=== PATIENT | female | born 1990 | race Caucasian/White ===

== ENCOUNTER 2017-03-15 12:57 | Inpatient (IN) | payer MEDICAID, OTHER ==
[~2017-03-15] VITALS: Ht 154.9 cm; Wt 66.2 kg
[2017-03-15 13:06] VITALS: Ht 154.9 cm; Wt 66.2 kg
[2017-03-15 13:07] VITALS: BP 109/66; PULSE 62; RESP 16
--- NOTE | 2017-03-15 15:45 | TRIAGE ---
OB Triage Datetime Report Generated by CPN: 03/15/2017 15:45 Datetime: 03/15/2017 15:37 Heart Rate FHR Baseline Rate: 135 Monitor Mode: External US Variability: Moderate 6-25 bpm Accelerations: 15X15 Decelerations: None Category: Category I Pain Assessment Pain Scale: 5 Pain Presence: Intermittent Pain Type: Contraction Pain Location: Abdomen Pain Goal: 3 Datetime: 03/15/2017 15:25 Vaginal Exam Dilatation (cms): 1.5 Effacement (%): 50 Station: -3 Exam By: [email or web address] Datetime: 03/15/2017 15:01 Labor Evaluation Frequency: Irreg Monitor Mode: External Duration (sec)2399: 50-60 Quality: Moderate Pattern: Normal: <= 5 Contractions in 10 Minutes Resting Tone Novice: Relaxed Heart Rate FHR Baseline Rate: 135 Monitor Mode: External US Variability: Moderate 6-25 bpm Accelerations: 15X15 Decelerations: Variable Category: Category II Pain Assessment Pain Scale: 5 Pain Presence: Intermittent Pain Type: Contraction Pain Location: Abdomen Pain Goal: 3 Datetime: 03/15/2017 14:00 Labor Evaluation Frequency: 3-9 Monitor Mode: External Duration (sec)2399: 50-100 Quality: Moderate Pattern: Normal: <= 5 Contractions in 10 Minutes Resting Tone Novice: Relaxed Heart Rate FHR Baseline Rate: 135 Monitor Mode: External US Variability: Moderate 6-25 bpm Accelerations: 15X15 Decelerations: Late; Variable Category: Category II Pain Assessment Pain Scale: 7 Pain Presence: Intermittent Pain Type: Contraction Pain Location: Abdomen Pain Goal: 3 Datetime: 03/15/2017 13:11 Vaginal Exam Dilatation (cms): 0.0 Station: -3 Exam By: [email or web address] Datetime: 03/15/2017 13:10 Maternal Assessment Level of Consciousness: Fully Conscious DTR's/Clonus: DTRs 2+; No Clonus Headache: Denies Blurred Vision: No Respiratory Effort: Unlabored; Regular Rhythm; Equal Expansion Breath Sounds, Left: Clear and Equal Breath Sounds, Right: Clear and Equal Nausea/Vomiting: Denies RUQ Epigastric Pain: Denies Facial Edema: None Fall Risk Assessment History of Falling: (0) No Secondary Diagnosis: (0) No Ambulatory Aid: (0) Bedrest/Nurse Assist IV Therapy: (0) No Gait: (0) Normal/Bedrest/Immobile Mental Status: (0) Oriented to Own Ability Fall Score: 0 Fall Risk Score Definition: No Risk: No action required Datetime: 03/15/2017 13:08 Time of Arrival: 03/15/2017 12:55 EGA: 40.1 Arrived By: Wheelchair Arrived From: Home Chief Complaint: pt. came to hospital c/o uc since 1230, q5mins apart, pain level 7/10, deny srom, deny vag. bleeding Movement: Present Contractions: Regular Patient Complaints: Contractions Time Provider Notified: 03/15/2017 14:10 Provider Notified: Initial Plan: R/O LABOR
--- NOTE | 2017-03-15 15:46 | HP ---
Date/Time of Note Date/Time of Note DATE: 03/15/17 TIME: 15:31 OB - History Hx of Present Free Text/Dictation 26 y.o. G1 with an IUP at 40w 1d c/o UC's since 1230. No bleeding or leaking. Chief Complaint: Contractions. Last Menstrual Period: May 21, 2016 Estimated Due Date: Mar 14, 2017 : 1 Para: 0 Care: Good Care Ultrasounds: Normal mid trimester US Obstetrical Complications: None Medical Complications: None Past Family/Social History * Past Medical, Surgical, Family and Obstetric Histories reviewed from chart. Blood Type: O+ Rubella: immune RPR/VDRL: Negative GBS Status: Positive HBsAG: Negative OB Admission Exam Vital Signs Vital Signs Vital Signs Date Time Temp Pulse Resp B/P Pulse Ox O2 Delivery O2 Flow Rate FiO2 03/15/17 13:07 97.7 62 16 109/66 Physical Exam HEENT: WNL Heart: Rhythm Normal Lungs: Clear Abdomen: WNL Extremities: Normal Reflexes: Normal Cervical Dilatation: other (1-2 cm) Effacement: 50% Station: -3 Heart Rate: 120's Accelerations: Accelerations Present Decelerations: Variable Decelerations Varibility: Moderate Contractions on Admission: 6-10 Minutes Apart OB Assessment/Plan Other Assessment: Prodromal labor. Postdates. Occasional variable decels. Beta strep positive. Plan: Other (Augmentation) Induction Method: per Pitocin Protocol Other plan: ABX prophylaxis RENAE DOOLEY MD Mar 15, 2017 15:46
[2017-03-15] MEDS ORDERED: IBUPROFEN 600 MG TAB PO PRN ×2 (16:00→16:30)
[2017-03-15] MEDS ORDERED: LIDOCAINE 1% (MPF) 30 ML INJ INJ PRN (16:00)
[2017-03-15] MEDS ORDERED: ACETAMINOPHEN/CODEINE #3 TAB PO PRN (16:00)
[2017-03-15] MEDS ORDERED: METHYLERGONOVINE 0.2 MG INJ IM PRN (16:00)
[2017-03-15] MEDS ORDERED: OXYTOCIN 30 UNITS/LR 500 ML IV PRN (16:00)
[2017-03-15] MEDS ORDERED: MISOPROSTOL 200 MCG TAB PR PRN (16:00)
[2017-03-15] MEDS ORDERED: CARBOPROST 250 MCG INJ IM PRN (16:00)
[2017-03-15] MEDS ORDERED: BUTORPHANOL 2 MG INJ IV PRN (16:00)
[2017-03-15] MEDS ORDERED: AMPICILLIN 2 GM/NS (PMX) 100 ML IV ONE (16:00)
[2017-03-15] MEDS ORDERED: OXYTOCIN 30 UNITS/LR 500 ML IV SCH ×6 (16:00→16:30)
[2017-03-15] MEDS: LACTATED RINGER'S 1,000 ML IV SCH (16:06)
[2017-03-15 16:16] LABS: ADD SCAN DIFF NO
--- NOTE | 2017-03-15 16:27 | RADRPT ---
PROCEDURE: US OB. CLINICAL INDICATION: Low ALEXI , pain TECHNIQUE: Transabdominal views of the pelvis are available for review. COMPARISON: No prior studies are available for comparison. FINDINGS: There is a single intrauterine gestation in a vertex position. The heart rate is noted at 154 bpm. The placenta is anterior. The ALEXI measures 10.4 cm. RPTAT: AA IMPRESSION: Normal ALEXI. .Gary Cortes MD, MD Date Time Electronically viewed and signed by .Gary Cortes MD, on 03/15/2017 16:27 .S/
[2017-03-15 16:32] LABS: BASOPHILS % 0.3 % (0.0-2.0); EOSINOPHILS % 0.1 % (0.0-7.0); HEMATOCRIT 37.6 % (37.0-47.0); LYMPHOCYTES # 1.4 10^3/ul (0.8-2.9); LYMPHOCYTES % 20.3 % (15.0-51.0); MEAN CORPUSCULAR HEMOGLOBIN 30.1 pg (29.0-33.0); MEAN CORPUSCULAR HGB CONC 34.6 g/dl (32.0-37.0); MEAN PLATELET VOLUME 11.2 fl (7.4-10.4); MONOCYTE # 0.6 10^3/ul (0.3-0.9); NEUTROPHILS % 70.9 % (39.0-77.0); PLATELET COUNT 161 10^3/UL (140-415); RED BLOOD COUNT 4.32 10^6/ul (4.20-5.40); WHITE BLOOD COUNT 7.1 10^3/ul (4.8-10.8)
[2017-03-15 16:48] LABS: INR 0.92; PARTIAL THROMBOPLASTIN TIME 26.6 Sec (25.0-35.0); PROTIME 12.4 Sec (12.2-14.2)
[2017-03-15] MEDS ORDERED: LACTATED RINGER'S 1,000 ML IV PRN (17:00)
[2017-03-15] MEDS: AMPICILLIN 1 GM/NS (PMX) 50 ML IV SCH (21:20)
[2017-03-16] MEDS: AMPICILLIN 1 GM/NS (PMX) 50 ML IV SCH ×6 (01:27→20:55)
[2017-03-16] MEDS: LACTATED RINGER'S 1,000 ML IV SCH ×4 (02:52→20:14)
[2017-03-16] MEDS ORDERED: PROCHLORPERAZINE 10 MG INJ IV PRN (10:30)
[2017-03-16] MEDS ORDERED: ONDANSETRON 4 MG INJ IV PRN (10:30)
[2017-03-16] MEDS ORDERED: KETOROLAC 30 MG INJ IV PRN (10:30)
[2017-03-16] MEDS ORDERED: HYDROmorphONE 1 MG/ML SYG IV PRN ×2 (10:30)
[2017-03-16] MEDS ORDERED: NALOXONE (0.4 MG/ML) INJ IV PRN (10:30)
[2017-03-16] MEDS ORDERED: ZOLPIDEM 5 MG TAB PO PRN (10:30)
[2017-03-16] MEDS: DIPHENHYDRAMINE 50 MG INJ IV PRN ×2 (13:31→23:41)
--- NOTE | 2017-03-16 15:12 | QN ---
Documentation Comment cervix is 50% 1.5 cm, not ruptured. she was admitted for IOL due to postdate and variable decel in Triage and UCs. she already has epidural. I offered d/c ome and return in labor, but patient declined. NST is reactive at this time. no variables. will stop Pitocin, if not regular UCs then start Cytotec, otherwise restart Pitocin. ESTELA CALDERON MD Mar 16, 2017 15:12
[2017-03-16] MEDS: MISOPROSTOL 25 MCG CAPSULE PO SCH ×2 (16:34→20:30)
[2017-03-16] MEDS: FENTAnyl 2MCG/ML-ROPIV 0.2% 100 ML BAG EPI SCH (20:15)
--- NOTE | 2017-03-17 00:16 | QN ---
Documentation Comment she is 3 cm 70% AROM: Clear will start Pitocin ESTELA CALDERON MD Mar 17, 2017 00:16
[2017-03-17] MEDS: AMPICILLIN 1 GM/NS (PMX) 50 ML IV SCH ×6 (01:11→20:00)
[2017-03-17] MEDS: FENTAnyl 2MCG/ML-ROPIV 0.2% 100 ML BAG EPI SCH ×2 (04:02→10:08)
[2017-03-17] MEDS: LACTATED RINGER'S 1,000 ML IV SCH ×2 (05:16→08:06)
[2017-03-17] MEDS ORDERED: ACETAMINOPHEN 325 MG TAB PO PRN (14:30)
[2017-03-17] MEDS ORDERED: GENTAMICIN 120 MG/NS (PMX) 100 ML IVPB ONE (14:30)
[2017-03-17 16:26] LABS: CBV Base Excess -4.3 mmol/L; CBV COHb 2.2 %; CBV Oxygen Sat 73.9 mmHG; CBV Total Hemglobin 17.3 g/dl; Cord Blood Venous AADO2 74.7 mmHg; Fraction OxyHgb Cord Venous 71.7 %; MODE ROOM AIR; MetHgb Cord Venous 0.8 %; Sample Type CBV
[2017-03-17] MEDS ORDERED: LACTATED RINGER'S 1,000 ML IV* SCH (16:28)
--- NOTE | 2017-03-17 16:28 | LDN ---
Date/Time of Note Date/Time of Note DATE: 03/17/17 TIME: 16:24 Delivery Summary 26 YO G 1 IUP 40 weeks s/p viable female infant APGARS 6 and 8. 2nd degree vaginal perineal laceration was repaired with 2-0 Vicryl. placenta delivered intact and spontaneously. Placenta Delivered: Spontaneously Meconium: none Episiotomy: No Anesthesia type: Epidural Estimated blood loss: 300 Sponge & Needle done & correct: Yes All needle counts correct: Yes Any foreign bodies felt in the: No Problems: Infant Delivery Information Sex Sex: female Apgars 1 Minute: 6 5 Minute: 8 Suctioning Nose & mouth suctioned at henny: No Delee suction performed: No Umbilical Cord Umbilical cord with: 3 Vessels Cord presentations: nuchal cord Nuchal cord present X: 1 Cord Blood was obtained: Yes Mother & Baby Disposition Disposition Mom & Baby to Maternity; Good: Yes ESTELA CALDERON MD Mar 17, 2017 16:28
[2017-03-17] MEDS ORDERED: WITCH HAZEL/GLYCERIN PAD PR PRN (16:30)
[2017-03-17] MEDS ORDERED: DIPHENHYDRAMINE 25 MG CAP PO PRN (16:30)
[2017-03-17] MEDS ORDERED: ONDANSETRON 4 MG INJ IV PRN (16:30)
[2017-03-17] MEDS ORDERED: ONDANSETRON 4 MG TAB PO PRN (16:30)
[2017-03-17] MEDS ORDERED: MAGNESIUM HYDROXIDE 30ML CUP PO PRN (16:30)
[2017-03-17] MEDS ORDERED: DIPHENHYDRAMINE 50 MG INJ IV PRN (16:30)
[2017-03-17] MEDS ORDERED: NA PHOSPHATE/BIPHOS 133 ML ENEMA PR PRN (16:30)
[2017-03-17] MEDS ORDERED: BENZOCAINE 20% 56 ML SPRAY TOP PRN (16:30)
[2017-03-17] MEDS ORDERED: DIBUCAINE 1% 30 GM OINT PR PRN (16:30)
[2017-03-17] MEDS ORDERED: LANOLIN 7 GM TUBE TOP PRN (16:30)
[2017-03-17] MEDS ORDERED: OXYTOCIN 30 UNITS/LR 500 ML IV PRN (16:30)
[2017-03-17] MEDS ORDERED: SENNA/DOCUSATE NA (8.6MG/50MG) TAB PO PRN (16:30)
[2017-03-17] MEDS ORDERED: CARBOPROST 250 MCG INJ IM PRN (16:30)
[2017-03-17] MEDS ORDERED: ACETAMINOPHEN/CODEINE #3 TAB PO PRN ×2 (16:30)
[2017-03-17] MEDS ORDERED: MISOPROSTOL 200 MCG TAB PR PRN (16:30)
[2017-03-17] MEDS: IBUPROFEN 600 MG TAB PO SCH (18:00)
[2017-03-17 18:15] VITALS: BP 144/90; PULSE 63; RESP 20
[2017-03-17 20:30] VITALS: BP 107/56; PULSE 87; RESP 18
[2017-03-17] MEDS: SENNA/DOCUSATE NA (8.6MG/50MG) TAB PO SCH (21:42)
[2017-03-18] MEDS: LACTATED RINGER'S 1,000 ML IV SCH
[2017-03-18] MEDS: IBUPROFEN 600 MG TAB PO SCH ×5 (00:14→23:30)
[2017-03-18 04:00] VITALS: BP 98/57; PULSE 59; RESP 17
--- NOTE | 2017-03-18 06:27 | DS ---
Date/Time of Note Date/Time of Note DATE: 03/18/17 TIME: 06:26 Obstetrical Discharge Record Final Diagnosis Final Diagnosis: Term delivered Vaginal Delivery Obstetrical Delivery: Spontaneous Other Delivery information had Fever and wa given Amp and Gent in Labor. remained afebrile after delivery Complications Induction: Yes Condition on Discharge Physical Assessment Voiding: Yes Bowel Movement: Yes Breast: Soft, non-tender, Filling Fundus: Firm Abdomen and Incision: soft, not tender Calf Tenderness: No Patient Condition: Good ESTELA CALDERON MD Mar 18, 2017 06:27
[2017-03-18 08:00] VITALS: BP 97/57; PULSE 68; RESP 18
[2017-03-18] MEDS: SENNA/DOCUSATE NA (8.6MG/50MG) TAB PO SCH ×2 (09:00→21:01)
[2017-03-18 11:02] LABS: ADD SCAN DIFF NO
[2017-03-18 11:07] LABS: BASOPHIL # 0.1 10^3/ul (0.0-0.1); BASOPHILS % 0.3 % (0.0-2.0); EOSINOPHILS # 0.1 10^3/ul (0.0-0.5); EOSINOPHILS % 0.3 % (0.0-7.0); HEMATOCRIT 30.8 % (37.0-47.0); HEMOGLOBIN 10.7 g/dl (12.0-16.0); LYMPHOCYTES # 1.6 10^3/ul (0.8-2.9); LYMPHOCYTES % 11.3 % (15.0-51.0); MEAN CORPUSCULAR HEMOGLOBIN 30.7 pg (29.0-33.0); MEAN CORPUSCULAR HGB CONC 34.7 g/dl (32.0-37.0); MEAN CORPUSCULAR VOLUME 88.3 fl (82.0-101.0); MEAN PLATELET VOLUME 11.1 fl (7.4-10.4); MONOCYTES % 6.6 % (0.0-11.0); NEUTROPHIL # 11.7 10^3/ul (1.6-7.5); NEUTROPHILS % 80.5 % (39.0-77.0); PLATELET COUNT 119 10^3/UL (140-415); RED BLOOD COUNT 3.49 10^6/ul (4.20-5.40); RED CELL DISTRIBUTION WIDTH 13.1 % (11.5-14.5); WHITE BLOOD COUNT 14.5 10^3/ul (4.8-10.8)
[2017-03-18 12:00] VITALS: BP 110/69; PULSE 67; RESP 18
[2017-03-18 16:00] VITALS: BP 93/52; PULSE 68; RESP 18
[2017-03-18 20:05] VITALS: BP 115/77; PULSE 74; RESP 17
[2017-03-19 04:00] VITALS: BP 104/67; PULSE 69; RESP 17
[2017-03-19] MEDS: IBUPROFEN 600 MG TAB PO SCH ×2 (05:33→12:48)
[2017-03-19 08:00] VITALS: BP_SYST 122; BP_SYST 95; BP_DIAS 53; BP_DIAS 70; PULSE 61; PULSE 65; RESP 18
[2017-03-19] MEDS ORDERED: MEASLES,MUMPS,RUBELLA VACCINE INJ SC* ONE (09:00)
[2017-03-19] MEDS ORDERED: VARICELLA VACCINE LIVE/PF 1,350 UNIT/0.5 ML ML SC* ONE (09:00)
[2017-03-19] MEDS ORDERED: DIPHTH/TET/ACEL PERTUSS (ADULT) 0.5 ML VIAL IM* ONE (09:00)
[2017-03-19] MEDS: SENNA/DOCUSATE NA (8.6MG/50MG) TAB PO SCH (12:50)
--- NOTE | 2017-03-19 12:50 | DS ---
Date/Time of Note Date/Time of Note DATE: 03/19/17 TIME: 12:46 Obstetrical Discharge Record Final Diagnosis Final Diagnosis: Term delivered Vaginal Delivery Obstetrical Delivery: Spontaneous Condition on Discharge Physical Assessment Last Vitals: Post day 2 Patient is doing well, Ambulatory She is afebrile Abdomen is soft , Fundus is firm Moderate amount of lochia Breasts are soft, Nipples are intact No calf tenderness. Perineum is healing well. Breast feeding the new born. Post day 2. Doing well Discharged home to be followed in clinic Voiding: Yes Bowel Movement: Yes Breast: Soft, non-tender Fundus: Firm Abdomen and Incision: Current Medications Medications (Trade) Dose Ordered Sig/Aleksandr Route PRN Reason Start Time Stop Time Status Last Admin Dose Admin Lactated Ringer's 1,000 ml @ 125 mls/hr Q8H IV 03/15/17 16:00 03/18/17 01:03 DC 03/17/17 08:06 Ampicillin 100 ml @ 100 mls/hr ONCE ONCE IV 03/15/17 16:00 03/15/17 16:59 DC 03/15/17 16:43 Ampicillin 50 ml @ 100 mls/hr Q4H IV 03/15/17 20:00 03/18/17 01:05 DC 03/17/17 16:04 Oxytocin/Lactated Ringer's 500 ml @ 0 mls/hr TITRATE IV 03/15/17 16:00 03/17/17 00:24 Butorphanol Tartrate (Stadol) 2 mg Q2H PRN IV PAIN 03/15/17 16:00 Lidocaine 30 ml 30 ml ONCE PRN INJ EPISIOTOMY/TEARING 03/15/17 16:00 Oxytocin/Lactated Ringer's 500 ml @ 125 mls/hr ONCE -MAY REPEAT X1 IV 03/15/17 16:00 Oxytocin/Lactated Ringer's 500 ml @ 125 mls/hr ONCE IV 03/15/17 16:00 Ibuprofen (Motrin) 600 mg ONCE PRN PO Mild Pain (Pain Score 1-3) 03/15/17 16:00 03/18/17 01:06 DC 03/17/17 16:50 Acetaminophen/ Codeine Phosphate 2 tab 2 tab ONCE PRN PO Moderate to Severe Pain (4-10) 03/15/17 16:00 Lactated Ringer's 1,000 ml @ 2,000 mls/hr Q30M PRN IV PRE-EPIDURAL BOLUS 03/15/17 17:00 Oxytocin/Lactated Ringer's 500 ml @ 0 mls/hr ONCE PRN IV For Hemorrhage Management 03/15/17 16:00 Methylergonovine Maleate (Methergine) 0.2 mg ONCE PRN IM VAGINAL BLEEDING 03/15/17 16:00 Carboprost Tromethamine (Hemabate) 250 mcg ONCE PRN IM VAGINAL BLEEDING 03/15/17 16:00 Misoprostol 1000 mcg 1,000 mcg ONCE PRN NJ VAGINAL BLEEDING 03/15/17 16:00 Oxytocin/Lactated Ringer's 500 ml @ 0 mls/hr TITRATE IV 03/15/17 16:30 03/15/17 16:44 Oxytocin/Lactated Ringer's 500 ml @ 125 mls/hr ONCE -MAY REPEAT X1 IV 03/15/17 16:30 03/17/17 16:52 Oxytocin/Lactated Ringer's 500 ml @ 125 mls/hr ONCE IV 03/15/17 16:30 Ibuprofen (Motrin) 600 mg ONCE PRN PO Mild Pain (Pain Score 1-3) 03/15/17 16:30 03/18/17 01:06 DC Naloxone HCl (Narcan) 0.1 mg Q2M PRN IV FOR RESP RATE 8 OR LESS 03/16/17 10:30 03/17/17 10:29 DC Ketorolac Tromethamine (Toradol) 30 mg Q6H PRN IV PAIN 03/16/17 10:30 03/17/17 10:29 DC Hydromorphone HCl (Dilaudid) 0.2 mg Q3H PRN IV PAIN LEVEL 1-5 03/16/17 10:30 03/17/17 10:29 DC Hydromorphone HCl (Dilaudid) 0.4 mg Q3H PRN IV PAIN LEVEL 6-10 03/16/17 10:30 03/17/17 10:29 DC Diphenhydramine HCl (Benadryl) 25 mg Q6H PRN IV ITCHING 03/16/17 10:30 03/17/17 10:29 DC 03/16/17 23:41 Ondansetron HCl (Zofran Inj) 4 mg Q6H PRN IV NAUSEA AND/OR VOMITING 03/16/17 10:30 03/17/17 10:29 DC 03/17/17 08:02 Prochlorperazine (Compazine Inj) 10 mg ONCE PRN IV NAUSEA AND/OR VOMITING 03/16/17 10:30 03/17/17 10:29 DC Zolpidem Tartrate (Ambien) 5 mg HS MAY REPEAT X 1 PRN PO INSOMNIA 03/16/17 10:30 03/17/17 10:29 DC Fentanyl/ Ropivacaine 100 ml EPIDURAL INFUSION EPI 03/16/17 10:30 03/17/17 10:08 Misoprostol 50 mcg 50 mcg Q4 PO 03/16/17 16:00 03/17/17 00:19 DC 03/16/17 20:30 Gentamicin Sulfate (Gentamicin) 100 ml @ 200 mls/hr ONCE ONCE IVPB 03/17/17 14:30 03/17/17 14:59 DC 03/17/17 14:31 Acetaminophen 650 mg 650 mg Q4H PRN PO PAIN AND OR ELEVATED TEMP 03/17/17 14:30 03/17/17 14:35 Lactated Ringer's (Lr) 1,000 ml @ 125 mls/hr Q8H IV* 03/17/17 16:28 03/18/17 01:03 DC Ibuprofen (Motrin) 600 mg Q6 PO 03/17/17 18:00 03/19/17 05:33 Acetaminophen/ Codeine Phosphate (Tylenol No.3) 1 tab Q4H PRN PO PAIN LEVEL 1-5 03/17/17 16:30 Acetaminophen/ Codeine Phosphate (Tylenol No.3) 2 tab Q4H PRN PO PAIN LEVEL 6-10 03/17/17 16:30 Ondansetron HCl (Zofran Inj) 4 mg Q6H PRN IV NAUSEA AND/OR VOMITING 03/17/17 16:30 Ondansetron HCl (Zofran Tab) 4 mg Q6H PRN PO NAUSEA AND/OR VOMITING 03/17/17 16:30 Diphenhydramine HCl (Benadryl) 25 mg Q6H PRN PO PRURITUS 03/17/17 16:30 Diphenhydramine HCl (Benadryl) 25 mg Q6H PRN IV PRURITUS 03/17/17 16:30 Senna/Docusate Sodium (Senokot-S) 1 tab BID PO 03/17/17 21:00 03/18/17 21:01 Senna/Docusate Sodium (Senokot-S) 1 tab BID PRN PO CONSTIPATION 03/17/17 16:30 Magnesium Hydroxide (Milk Of Mag) 30 ml Q12H PRN PO CONSTIPATION 03/17/17 16:30 Sodium Biphosphate/ Sodium Phosphate (Fleet Enema) 133 ml DAILY PRN [place] CONSTIPATION 03/17/17 16:30 Witch Janeth/ Glycerin (Tucks Pads) 1 pad BEDSIDE MEDICATION PRN NJ HEMORRHOID/EPISIOTMY PAIN 03/17/17 16:30 03/17/17 21:50 Benzocaine (Dermoplast Rayle) 1 spray BEDSIDE MEDICATION PRN TOP HEMORRHOID/EPISIOTMY PAIN 03/17/17 16:30 03/17/17 21:49 Dibucaine (Nupercainal) 1 applic BEDSIDE MEDICATION PRN NJ HEMORRHOID/EPISIOTMY PAIN 03/17/17 16:30 Lanolin ([id number]) 1 applic BEDSIDE MEDICATION PRN TOP BEDSIDE FOR BERNARDO TO NIPPLES 03/17/17 16:30 03/17/17 21:49 Measles/Mumps/ Rubella Vaccine Live (Mmr Ii Vaccine) 0.5 ml ONCE ONCE SC* 03/19/17 09:00 03/19/17 09:01 DC Diphtheria/ Tetanus/Acell Pertussis (Adacel) 0.5 ml ONCE ONCE IM* 03/19/17 09:00 03/19/17 09:01 DC Varicella Virus Vaccine Live 1350 unit 1,350 unit ONCE ONCE SC* 03/19/17 09:00 03/19/17 09:01 DC Oxytocin/Lactated Ringer's 500 ml @ 0 mls/hr ONCE PRN IV For Hemorrhage Management 03/17/17 16:30 Carboprost Tromethamine (Hemabate) 250 mcg ONCE PRN IM VAGINAL BLEEDING 03/17/17 16:30 Misoprostol (Cytotec) 1,000 mcg ONCE PRN [place] VAGINAL BLEEDING 03/17/17 16:30 Calf Tenderness: No Patient Condition: Good LILIBETH QUIÑONEZ MD Mar 19, 2017 12:50
[2017-03-19 15:41] VITALS: BP 103/57; PULSE 62; RESP 18
== END 2017-03-19 18:46 | disposition home or self-care (01) | DRG 775 ==
LOC: OBT 12:57 → L-D 12:58 → OBT 15:30 → PP1 03-17 18:19
PROVIDERS: ADMIT Specialist; ATTEND Specialist
PROC: 10E0XZZ Delivery of Products of Conception, External Approach (ICD-10-PCS; principal; 2017-03-17)
PROC: 0KQM0ZZ Repair Perineum Muscle, Open Approach (ICD-10-PCS; 2017-03-17)
PROC: 3E033VJ Introduction of Other Hormone into Peripheral Vein, Percutaneous Approach (ICD-10-PCS; 2017-03-17)
PROC: 3E00X4Z Introduction of Serum, Toxoid and Vaccine into Skin and Mucous Membranes, External Approach (ICD-10-PCS; 2017-03-19)
DX: O48.0 Post-term pregnancy (principal); O71.4 Obstetric high vaginal laceration alone; Z3A.40 40 weeks gestation of pregnancy; O69.81X0 Labor and delivery complicated by cord around neck, without compression, not applicable or unspecified; Z23 Encounter for immunization; Z37.0 Single live birth
CPT/HCPCS: 36415; 62319; 76815; 82803; 85025; 85610; 85730; 86592; 86900; 86901; 87340; 90715; 90716; 99464; G0463; J0290; J1200; J1580; J2405; J2590; J3010; J7120